=== PATIENT | female | born 1940 | race African-American/Black ===

== ENCOUNTER 2017-07-02 19:59 | Emergency (ER) | payer MEDICARE ==
[2017-07-02 21:47] LABS: ABSOLUTE EOSINOPHILS # (AUTO) 0.1 10^3/uL (0.0-0.6); ABSOLUTE LYMPHOCYTES (AUTO) 2.3 10^3/uL (0.5-4.7); ABSOLUTE MONOCYTES (AUTO) 0.4 10^3/uL (0.1-1.4); ABSOLUTE NEUT (AUTO) 4.8 10^3/uL (1.7-8.2); BASOPHILS % (AUTO) 0.2 % (0-2); EOSINOPHILS % (AUTO) 1.5 % (0-6); HEMATOCRIT 37.7 % (36.0-47.0); HEMOGLOBIN 12.4 g/dL (12.0-15.5); HGB HCT DIFFERENCE -0.5; LYMPHOCYTES % (AUTO) 30.2 % (13-45); MEAN CORPUSCULAR HEMOGLOBIN 26.7 pg (27.0-33.4); MEAN CORPUSCULAR VOLUME 81 fl (80-97); RED BLOOD COUNT 4.67 10^6/uL (3.72-5.28); RED CELL DISTRIBUTION WIDTH 15.1 % (11.5-14.0); SEGMENTED NEUTROPHILS % (AUTO) 63.1 % (42-78); WHITE BLOOD COUNT 7.6 10^3/uL (4.0-10.5)
[2017-07-02 22:06] LABS: PROTHROMBIN TIME 19.5 SEC (11.4-15.4)
[2017-07-02 22:07] LABS: ALANINE AMINOTRANSFERASE 20 U/L (9-52); ALKALINE PHOSPHATASE 112 U/L (38-126); ANION GAP 9 (5-19); ASPARTATE AMINO TRANSFERASE 19 U/L (14-36); BILIRUBIN,DIRECT 0.4 mg/dL (0.0-0.4); BILIRUBIN,TOTAL 0.7 mg/dL (0.2-1.3); BLOOD UREA NITROGEN 21 mg/dL (7-20); CALCIUM 10.1 mg/dL (8.4-10.2); CARBON DIOXIDE 30 mmol/L (22-30); CHLORIDE 101 mmol/L (98-107); CREATINE KINASE 77 U/L (30-135); CREATININE RESULT 0.88 mg/dL (0.52-1.25); GLUCOSE 99 mg/dL (75-110); POTASSIUM 3.7 mmol/L (3.6-5.0); SODIUM 140.3 mmol/L (137-145); TOTAL PROTEIN 8.6 g/dL (6.3-8.2)
--- NOTE | 2017-07-02 22:10 | ER Document Report ---
ED General - General Chief Complaint: Blood Pressure Problem Stated Complaint: HIGH BLOOD PRESSURE Time Seen by Provider: 07/02/17 22:05 Notes: Patient is a 77-year-old female presents with complaint of hypertension. She says her blood pressure most likely is high because of the pain she was having her neck. She says she has been having pain in her neck for a while now. She says is mainly in the right side. She is written Ultram recently. Said the Ultram has not been helping. Says is worse when she moves her neck a certain way or lays certain way. No chest pain. No shortness of breath. No fevers. She is down visiting her son. She is from [place]. She was recently discharged from [facility]. She did bring her records from there. At that time they did EKG as well as cardiac enzymes. She had 3 negative troponins. She was discharged. She was discharged with the Ultram. She is also on Coumadin because of her history of A. fib. She currently says she is feeling improved. Her blood pressures improved. She took her blood pressure medications before coming in. She has no other complaints at this time. She denies headache. TRAVEL OUTSIDE OF THE [place] IN LAST 30 DAYS: No Past Medical History - Social History Smoking Status: Unknown if Ever Smoked Frequency of alcohol use: None Drug Abuse: None Family History: Reviewed & Not Pertinent Patient has suicidal ideation: No Patient has homicidal ideation: No Renal/ Medical History: Denies: Hx Peritoneal Dialysis Review of Systems - Review of Systems Notes: My Normal Review Basic REVIEW OF SYSTEMS: CONSTITUTIONAL : Denies fever, chills, or sweats. Denies recent illness. EENT: Denies eye, ear, throat, or mouth pain or symptoms. Denies nasal or sinus congestion. CARDIOVASCULAR: Denies chest pain. RESPIRATORY: Denies cough, cold, or chest congestion. Denies shortness of breath, difficulty breathing, or wheezing. GASTROINTESTINAL: Denies abdominal pain. Denies nausea, vomiting, or diarrhea. Denies constipation. Last BM: MUSCULOSKELETAL: Neck pain SKIN: Denies rash or skin lesions. NEUROLOGICAL: Denies altered mental status or loss of consciousness. Denies headache. Denies weakness or paralysis or loss of use of either side. Denies problems with gait or speech. Denies sensory or motor loss. ALL OTHER SYSTEMS REVIEWED AND NEGATIVE. Physical Exam - Vital signs Vitals: Temp Pulse Resp BP Pulse Ox 97.9 F 80 16 158/87 H 97 07/02/17 20:54 07/02/17 20:54 07/02/17 20:54 07/02/17 20:54 07/02/17 20:54 - Notes Notes: General Appearance: Well nourished, alert, cooperative, no acute distress, no obvious discomfort. Well-appearing. Vitals: reviewed, See vital signs table. Head: no swelling or tenderness to the head Eyes: PERRL, EOMI, Conjuctiva clear Mouth: No decreasd moisture Throat: No tonsillar inflammation, No airway obstruction, No lymphadenopathy Neck: Supple, no midline neck tenderness to palpation. Patient does have some tenderness palpation of the right paracervical musculature. Pain worse with turning head. Lungs: No wheezing, No rales, No rhonci, No accessory muscle use, good air exchange bilaterally. Heart: Normal rate, Regular rythm, No murmur, no rub Abdomen: Normal BS, soft, No rigidity, No abdominal tenderness, No guarding, no rebound, no abdominal masses, no organomegaly Extremities: strength 5/5 in all extremities, good pulses in all extremities, no swelling or tenderness in the extremities, no edema. Skin: warm, dry, appropriate color, no rash Neuro: speech clear, oriented x 3, normal affect, responds appropriately to questions. Cranial nerves II through XII are intact. Distal sensation intact. Patient moves all extremities without difficulty. Course - Re-evaluation Re-evalutation: 07/03/17 00:56 Patient's blood pressure is much improved. She looks well. She does have some reproducible pain to palpation of the right cervical paraspinal musculature. Seems very musculoskeletal in nature. She says Ultram does not always help. I will prescribe Skelaxin. Encouraged to continue take her blood pressure medication. She is to return to ER if she is any chest pain or shortness of breath or feels unwell. Patient agrees with plan will be discharged home. Patient's urinalysis does show some bacteremia. 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 She has had no urinary symptoms at this time. I will place her in just a 3 day course of Cipro. I will have her follow -up with her doctor sooner she gets back to [place]. Dictation of this chart was performed using voice recognition software; therefore, there may be some unintended grammatical errors. - Vital Signs Vital signs: Temp Pulse Resp BP Pulse Ox 98.8 F 68 18 134/80 H 96 07/03/17 00:18 07/03/17 00:18 07/03/17 00:18 07/03/17 00:18 07/03/17 00:18 - Laboratory Result Diagrams: 07/02/17 21:30 07/02/17 21:30 Laboratory results interpreted by me: 07/02/17 07/02/17 07/02/17 21:30 21:30 21:30 MCH 26.7 L RDW 15.1 H PT 19.5 H BUN 21 H Total Protein 8.6 H Urine Blood Urine Urobilinogen Ur Leukocyte Esterase 07/02/17 21:30 MCH RDW PT BUN Total Protein Urine Blood SMALL H Urine Urobilinogen 2.0 H Ur Leukocyte Esterase LARGE H - EKG Interpretation by Me Additional EKG results interpreted by me: 07/02/17 22:09 EKG is reviewed and interpreted by me. EKG shows A. fib with a rate of 72 bpm. Patient has left bundle branch block. No concerning ST segment changes in lumen of the left bundle branch block. QRS duration and QTc intervals are prolonged. Patient has no old EKG in her system however she brings records from [facility] from her recent admission. In those records it says on June 26 she had an EKG which shows A. fib with a left bundle branch block. Discharge - Discharge Clinical Impression: Neck pain Hypertension Qualifiers: Hypertension type: unspecified Qualified Code(s): I10 - Essential (primary) hypertension Condition: Good Disposition: HOME, SELF-CARE Additional Instructions: Please return to the ER immediately if you develop difficulty severe headache, chest pain, or difficulty breathing. Please take the prescribed medicine for your neck pain. Please follow up with your doctor in early next week for reevaluation. Your urinalysis showed evidence of some bacteria in your urine. I have placed you on an antibiotic. Please take the antibiotic as prescribed. return to the ER immediately if you develops fevers. Prescriptions: Ciprofloxacin HCl [Cipro 500 mg Tablet] 500 mg PO BID #6 tablet Metaxalone [Skelaxin 800 mg Tablet] 800 mg PO ASDIR PRN #20 tablet PRN Reason:
[2017-07-02 22:16] LABS: APPEARANCE,URINE SLIGHTLY-CLOUDY; BILIRUBIN,URINE NEGATIVE (NEGATIVE); GLUCOSE, URINE NEGATIVE (NEGATIVE); KETONES,URINE NEGATIVE (NEGATIVE); LEUKOCYTE ESTERASE,URINE LARGE (NEGATIVE); NITRITE,URINE NEGATIVE (NEGATIVE); PROTEIN,URINE NEGATIVE (NEGATIVE); URINE SPECIFIC GRAVITY 1.012
[2017-07-02 22:20] LABS: TROPONIN I < 0.012 ng/mL
--- NOTE | 2017-07-02 22:20 | RADIOLOGY REPORT (SQ) ---
EXAM DESCRIPTION: CHEST PA/LAT COMPLETED DATE/TIME: 07/02/2017 9:59 pm REASON FOR STUDY: CHF COMPARISON: None. EXAM PARAMETERS: NUMBER OF VIEWS: two views TECHNIQUE: Digital Frontal and Lateral radiographic views of the chest acquired. RADIATION DOSE: NA LIMITATIONS: none FINDINGS: LUNGS AND PLEURA: No opacities, masses or pneumothorax. No pleural effusion. MEDIASTINUM AND HILAR STRUCTURES: No masses or contour abnormalities. HEART AND VASCULAR STRUCTURES: Cardiomegaly. BONES: No acute findings. Multiple old rib fractures on the right. HARDWARE: None in the chest. OTHER: No other significant finding. IMPRESSION: OLD POSTTRAUMATIC CHANGES. CARDIOMEGALY. NO ACUTE FINDINGS. TECHNICAL DOCUMENTATION: JOB ID: [id number] [employer]- All Rights Reserved
[2017-07-02] MEDS ORDERED: METAXALONE 800 MG TABLET PO ONE (22:37)
[2017-07-02] MEDS ORDERED: CIPROFLOXACIN HCL 500 MG TABLET PO ONE (22:38)
[2017-07-03 00:19] VITALS: BP 134/80
--- NOTE | 2017-07-03 08:00 | EKG REPORT ---
SEVERITY:- ABNORMAL ECG - ATRIAL FIBRILLATION, V-RATE 60-92 LEFT BUNDLE BRANCH BLOCK : Confirmed by: Rommel Almazan MD 03-Jul-2017 08:00:10
== END 2017-07-03 00:25 | disposition home or self-care (01) ==
LOC: ER 19:59
DX: I10 Essential (primary) hypertension (principal); M54.2 Cervicalgia
CPT/HCPCS: 36415; 71020; 80053; 81001; 82550; 82553; 84484; 85025; 85610; 93005; 93010; 99284